=== PATIENT | male | born 1995 | race Caucasian/White ===

== ENCOUNTER 2020-10-01 13:54 | Emergency (ER) | payer OTHER ==
[~2020-10-01] VITALS: Ht 182.9 cm; Wt 77.1 kg
[2020-10-01 14:14] VITALS: BP 155/88
--- NOTE | 2020-10-01 14:14 | NUR ---
ED Nurse Note: Patient from home and walked in due to non radiating left side CP since this morning. Patient admits on drinking vodka last night and reports that his hearbeat is beating fast. Also N/V since night. Patient is AAO x4, ambulates with steady gait. No hand tremors.
[2020-10-01] MEDS ORDERED: Ketorolac 30mg Inj IV ONE (14:15)
[2020-10-01] MEDS ORDERED: chlordiazePOXIDE 25mg Cap ORAL ONE (14:15)
--- NOTE | 2020-10-01 14:27 | NUR ---
ED Nurse Note: Collected blood and urine then sent.
[2020-10-01 14:37] LABS: BASOPHILS % (AUTO) 0.7 % (0.0-2.0); HEMATOCRIT 52.3 % (42.0-52.0); HEMOGLOBIN 16.8 G/DL (14.2-18.0); LYMPHOCYTES % (AUTO) 22.9 % (20.0-45.0); MEAN CORPUSCULAR VOLUME 94 FL (80-99); MONOCYTES % (AUTO) 9.4 % (1.0-10.0); PLATELET COUNT 291 K/UL (150-450); RED BLOOD COUNT 5.58 M/UL (4.70-6.10); RED CELL DISTRIBUTION WIDTH 13.1 % (11.6-14.8); WHITE BLOOD COUNT 9.1 K/UL (4.8-10.8)
[2020-10-01 14:43] LABS: ANION GAP 23 mmol/L (5-15); BLOOD UREA NITROGEN 10 mg/dL (7-18); CALCIUM 9.5 MG/DL (8.5-10.1); CARBON DIOXIDE 17 MMOL/L (21-32); CHLORIDE 97 MMOL/L (98-107); CREATININE 1.1 MG/DL (0.55-1.30); POTASSIUM 3.8 MMOL/L (3.5-5.1); SODIUM 137 MMOL/L (136-145)
[2020-10-01 14:48] LABS: APPEARANCE,URINE SLIGHTLY CLOUDY; BILIRUBIN, URINE NEGATIVE (NEGATIVE); GLUCOSE, URINE (UA) NEGATIVE (NEGATIVE); KETONES,URINE 4+ (NEGATIVE); LEUKOCYTE ESTERASE ,URINE NEGATIVE (NEGATIVE); NITRITE,URINE NEGATIVE (NEGATIVE); PH,URINE 5 (4.5-8.0); PROTEIN,URINE 2+ (NEGATIVE); UROBILINOGEN,URINE NORMAL MG/DL (0.0-1.0)
[2020-10-01 14:53] LABS: COLOR,URINE YELLOW
[2020-10-01 14:56] LABS: ALANINE AMINOTRANSFERASE 127 U/L (12-78); ALBUMIN 4.7 G/DL (3.4-5.0); ALBUMIN/GLOBULIN RATIO 1.1 (1.0-2.7); ALKALINE PHOSPHATASE 64 U/L (46-116); ASPARTATE AMINO TRANSFERASE 113 U/L (15-37); BILIRUBIN,TOTAL 0.5 MG/DL (0.2-1.0)
--- NOTE | 2020-10-01 14:59 | Diagnostic Imaging Report ---
Procedure: XRAY Chest 1v Reason for study: Chest pain. Comparison films: None. FINDINGS: A single one view chest is obtained. Vascularity is normal. The lung vaughn are clear bilaterally. Cardiac and mediastinal silhouette are within normal limits. CP angles are sharp. The bony thorax appear unremarkable. IMPRESSION: NO ACUTE CARDIOPULMONARY DISEASE.
--- NOTE | 2020-10-01 15:52 | Emergency Room Report ---
History of Present Illness General Chief Complaint: Chest Pain Source: Patient Present Illness HPI 24-year-old male with history of alcohol abuse here complaining of palpitation chest pain x1 day. Patient reports that for the past year he has been drinking alcohol every day and has been trying to cut back in the past few days. Also complains of headache and dizziness and multiple bouts of nonbloody emesis. Denies cough and congestion. Denies drug use however admits that he also smokes marijuana. Denies tobacco smoke. Denies SI and HI. Allergies: Coded Allergies: No Known Allergies (Unverified , 10/01/20) COVID-19 Screening Contact w/high risk pt: No Experienced COVID-19 symptoms?: No COVID-19 Testing performed [employer]: Yes COVID-19 Screening: Negative COVID-19 COVID-19 Testing Source: 3 weeks ago Patient History Past Medical History: see triage record Past Surgical History: none Pertinent Family History: none Social History: Reports: alcohol use Immunizations: UTD Reviewed Nursing Documentation: PMH: Agreed; PSxH: Agreed Nursing Documentation-PMH Past Medical History: No Stated History Review of Systems All Other Systems: negative except mentioned in HPI Physical Exam Vital Signs Date Time Temp Pulse Resp B/P (MAP) Pulse Ox O2 Delivery O2 Flow Rate FiO2 10/01/20 14:04 98.6 118 25 155/88 (110) 100 Room Air Sp02 EP Interpretation: reviewed, normal General Appearance: no apparent distress, alert, GCS 15, non-toxic Head: normocephalic, atraumatic Eyes: bilateral eye normal inspection, bilateral eye PERRL ENT: hearing grossly normal, normal pharynx, no angioedema, normal voice Neck: full range of motion, supple/symm/no masses Respiratory: chest non-tender, lungs clear, normal breath sounds, no rhonchi, no respiratory distress, no retraction, no accessory muscle use, speaking full sentences Cardiovascular #1: regular rate, rhythm, no edema, no gallop, no murmur Cardiovascular #2: 2+ carotid (R), 2+ carotid (L), 2+ radial (R), 2+ radial (L), 2+ dorsalis pedis (R), 2+ dorsalis pedis (L) Gastrointestinal: non tender, soft Rectal: deferred Genitourinary: no CVA tenderness Musculoskeletal: back normal, calf tenderness Neurologic: alert, motor strength/tone normal, oriented x3, sensory intact, responsive, speech normal Psychiatric: judgement/insight normal, memory normal, mood/affect normal, no suicidal/homicidal ideation Skin: no rash Lymphatic: no adenopathy Medical Decision Making MORA Attestation All my diagnosis and treatment plans were reviewed ad discussed with my supervising physician Dr. José Diagnostic Impression: Primary Impression: Alcohol withdrawal Additional Impression: Elevated liver enzymes ER Course 24-year-old male with history of alcohol abuse here complaining of palpitation chest pain x1 day. Patient reports that for the past year he has been drinking alcohol every day and has been trying to cut back in the past few days. Also complains of headache and dizziness and multiple bouts of nonbloody emesis. Denies cough and congestion. Denies drug use however admits that he also smokes marijuana. Denies tobacco smoke. Denies SI and HI. Ddx considered but are not limited to: ND, Angina, COPD, GERD, alcohol withdrawal Vital signs: are WNL, pt. is afebrile H&PE are most consistent with alcohol withdrawal ORDERS: EKG, Chest XR, CBC, CMP, UDS, UA, EtOH serum level, troponin, Zofran, Librium ED INTERVENTIONS: Librium, NS bolus, Zofran, Pepcid, Toradol DISCHARGE: At this time pt. is stable for d/c to home. Will provide printed patient care instructions, and any necessary prescriptions. Care plan and follow up instructions have been discussed with the patient prior to discharge. Gave a list of alcohol withdrawal rehab places the patient, gave 3-day supply of Librium only and advised that this is a one-time only prescription of Librium from ED patient needs to establish primary doctor also follow-up with psychiatrist for prolonged treatment of anxiety as well as withdrawal from alcohol. Patient understands the symptoms are secondary to alcohol withdrawal. Also understanding has a fatty liver secondary to alcohol consumption. Advised patient return to the emergency room for worsening symptoms. EKG Diagnostic Results Rate: tachycardiac Rhythm: other - tachy ST Segments: no acute changes Other Impression No acute ST changes ASA given to the pt in ED: No Chest X-Ray Diagnostic Results Chest X-Ray Diagnostic Results : Chest X-Ray Ordered: Yes # of Views/Limited/Complete: 1 View Indication: Chest Pain EP Interpretation: Yes MORA Xray: Interpretation reviewed, by supervising MD, and agrees with findings. Interpretation: no consolidation, no effusion, no pneumothorax Impression: No acute disease Electronically Signed by: Jadiel Mauricio PA-C Last Vital Signs Date Time Temp Pulse Resp B/P (MAP) Pulse Ox O2 Delivery O2 Flow Rate FiO2 10/01/20 14:14 118 18 Room Air 10/01/20 14:14 98.6 155/88 100 Disposition: HOME, SELF-CARE Condition: Stable Scripts Chlordiazepoxide Hcl (CHLORDIAZEPOXIDE HCL) 25 Mg Capsule 25 MG PO TID for 3 Days, #10 CAP Prov: Jadiel Canales 10/01/20 Ondansetron (Zofran) 4 Mg Tablet 4 MG ORAL Q6H PRN for Nausea & Vomiting, #14 TAB Prov: Jadiel Canales 10/01/20 Referrals: DENIS MONTERO (PCP) Patient Instructions: Alcohol Use Disorder Additional Instructions: , Follow primary care provider, worsening symptoms return to the emergency room Jadiel Canales Oct 01, 2020 15:52
[2020-10-01] MEDS ORDERED: ZOFRAN4 M1 ORAL (15:54)
[2020-10-01 15:58] VITALS: BP 142/80
[2020-10-01] MEDS ORDERED: CHLORDIAZEPOXID25 MG PO (16:05)
[2020-10-01 16:15] VITALS: BP 32/74
--- NOTE | 2020-10-01 16:15 | NUR ---
ER DISCHARGE NOTE: Patient is cleared to be discharged per PA, pt is aox4, on room air, with stable vital signs. pt was given dc and prescription instructions, pt was able to verbalize understanding, pt id band and iv site removed without complications. pt is able to ambulate with steady gait. pt took all belongings.
== END 2020-10-01 16:15 | disposition home or self-care (01) ==
LOC: EMR 14:23
DX: F10.139 Alcohol abuse with withdrawal, unspecified (principal); F12.90 Cannabis use, unspecified, uncomplicated; R74.8 Abnormal levels of other serum enzymes; Y90.1 Blood alcohol level of 20-39 mg/100 ml
CPT/HCPCS: 36415; 71045; 80053; 80307; 81003; 83690; 84443; 84484; 85025; 93005; 96361; 96374; 96375; 99284; G0480; J1885; J2405; J7030; S0028